=== PATIENT | female | born 1985 | race Caucasian/White ===

== ENCOUNTER 2020-03-23 06:00 | Inpatient (IN) | payer OTHER ==
[2020-03-23 07:14] VITALS: BMI 25.3
[2020-03-23] MEDS ORDERED: OXYTOCIN 20 UNITS in 0.9% NS 20 UNIT/1,000 ML INFUS.BAG IV ONE (08:01)
[2020-03-23] MEDS ORDERED: CITRIC ACID/SODIUM CITRATE 30 ML UNIT-DOSE CUP PO ONE (08:09)
[2020-03-23] MEDS ORDERED: ELECTROLYTE-148 SOLN 500 ML IV ONE (08:09)
--- NOTE | 2020-03-23 08:13 | HP ---
Past Medical History - Admission Chief Complaint: breech, iugr for c s History Source: Patient Limitations to Obtaining History: No Limitations - Past Medical History DIVE MASTER: No: Alzheimer's, CVA, Dementia, Migraine, Multiple Sclerosis, Peripheral Neuropathy, Parkinson's, Seizure, Syncope, TIA, Vertigo, Other Cardiovascular: No: AFIB, Aneurysm, Aortic Insufficiency, Aortic Stenosis, CAD, CHF, Deep Vein Thrombosis, HTN, Hyperlipdemia, MD, Mitral Insufficiency, Mitral Stenosis, Murmur, Pulmonary Hypertension, Other Pulmonary: No: Asthma, Bronchitis, Cancer, COPD, O2 Dependent, Pneumonia, Previously Intubated, Pulmonary Embolus, Pulmonary Fibrosis, Sleep Apnea, Other Gastrointestinal: No: Ascites, Cancer, Constipation, Crohn's Disease, Diverticulitis, Diverticulosis, Esophageal Varices, Gastritis, GERD, GI Bleed, Hemorrhoids, Hiatal Hernia, Inflamatory Bowel Disease, Irritable Bowel Disease, Pancreatitis, Peptic Ulcer Disease, Ulcerative Colitis, Other Hepatobiliary: No: Cirrhosis, Cholelithiasis, Cholecystitis, Choledocholithiasis, Hepatitis A, Hepatitis B, Hepatitis C, Other Renal/: No: Renal Failure, Renal Inusuff, BPH, Cancer, Hematuria, Hemodialysis, Neurogenic Bladder, Renal Calculi, UTI, Other Reproductive: No: Ectopic , Endometriosis, Fibroids, PID, Polycystic Ovary Syndrome, Postmenopausal, Other ...: 1 ...Para: 0 ...Term: 0 ...: 0 ...Spon : 0 ...Induced : 0 ...Living Children: 0 ...Multiple Gestation: 0 ...LMP: 07/03/19 ... Weeks Gestation by Dates: 38.4 ...EDC by Dates: 04/03/20 Heme/Onc: No: Anemia, B12 Deficiency, Bleeding Disorder, Cancer, Current Chemotherapy, Current Radiation Therapy, Hemochromatosis, Hypercoaguable State, Myeloproliferative Synd, Sickle Cell Disease, Sickle Cell Trait, Thrombocytopen ia, Other Infectious Disease: No: AIDS, C-Diff, Herpes Zoster, HIV, MRSA, STD's, Tuberculosis, VREF, Other Psych: No: Addictions, Anxiety, Bipolar, Depression, Panic, Psychosis, Schizophrenia, Other Musculoskeletal: No: Bursitis, Chronic low back pain, Hemiparesis, Hemiplegia, Osteoarthritis, Paraplegia, Other Rheumatology: No: Fibromyalgia, Gout, Lupus, Rheumatoid Arthritis, Sarcoidosis, Vasculitis, Other ENT: No: Allergic Rhinitis, Sinusitis, Other Endocrine: No: Tony's Disease, Briana's Disease, Diabetes Insipidus, Diabetes Mellitus, Hyperparathyroidism, Hyperthyroidism, Hypothyroidism, Osteopenia, SIADH, Other Dermatology: No: Basal Cell, Cellulitis, Eczema, Melanoma, Psoriasis, Squamous Cell, Other - Past Surgical History Past Surgical History: No: None, AAA Repair, AICD, Amputation, Appendectomy, Arthrosocopy, AV Fistula/Graft, Bariatric Surgery, Breast Biopsy, Bypass, CABG, Carotid Endarterectomy, Cataract Removal, Cholecystectomy, Colectomy, Colonoscopy, Colostomy, Craniotomy, , Cystectomy, Hernia Repair, Hysterectomy, Ileal Conduit, Ileosotomy, Joint Replacement, Kidney Transplant, Laminectomy, Liver Transplant, Mastectomy, Nephrectomy, Oopherectomy, Orchiectomy, Permanent Pacemaker, Prostatectomy, Splenectomy, Stent, Thoracotomy, TURP, Tonsillectomy, Tubal Ligation, Upper Endoscopy, Valve Replacement, Vasectomy, Vein Stripping/Ligation Hx Myomectomy: No Hx Transabdominal Cerclage: No - Advance Directives Advance Directives: Yes: Living Will - Smoking History Smoking history: Never smoked Have you smoked in the past 12 months: No - Alcohol/Substance Use Hx Alcohol Use: No History of Substance Use: reports: None - Social History Usual Living Arrangement: Yes: With Significant Other Do you think of yourself as: Straight/Heterosexual ADL: Independent History of Recent Travel: No Home Medications - Allergies Allergies/Adverse Reactions: Allergies Allergy/AdvReac Type Severity Reaction Status Date / Time No Known Allergies Allergy Verified 03/23/20 06:33 - Home Medications Home Medications: Ambulatory Orders Caplet 03/23/20 Family Medical History Family History: Denies Review of Systems - Review of Systems Constitutional: reports: No Symptoms Eyes: reports: No Symptoms HENT: reports: No Symptoms Neck: reports: No Symptoms Cardiovascular: reports: No Symptoms Respiratory: reports: No Symptoms Gastrointestinal: reports: No Symptoms Genitourinary: reports: No Symptoms Breasts: reports: No Symptoms Reported Musculoskeletal: reports: No Symptoms Integumentary: reports: No Symptoms Neurological: reports: No Symptoms Endocrine: reports: No Symptoms Hematology/Lymphatic: reports: No Symptoms Psychiatric: reports: No Symptoms Physical Exam - Maternity Vital Signs: Vital Signs Temperature 98.1 F 03/23/20 06:36 Pulse Rate 105 H 03/23/20 06:36 Respiratory Rate 18 03/23/20 06:36 Blood Pressure 135/79 03/23/20 06:36 O2 Sat by Pulse Oximetry (%) Constitutional: Yes: Well Nourished, No Distress, Calm Eyes: Yes: WNL, Conjunctiva Clear, EOM Intact HENT: Yes: WNL, Atraumatic, Normocephalic Neck: Yes: WNL, Supple, Trachea Midline Cardiovascular: Yes: WNL, Regular Rate and Rhythm Lungs: Clear to auscultation Breast(s): Yes: WNL - Abdominal Exam/OB Number of Fetuses: Single Presentation: Breech Contractions: Yes Regularity: Irregular Intensity: Unaware Monitor Mode: External Heart Rate (range): 150 Heart Rate Location: [facility] Category: I Accelerations: Uniform Decelerations: None - Vaginal Exam/OB Vaginal Bleeding: No Speculum Exam: No Amniotic Membrane Status: Intact Presentation: Gage Breech Station: -2 - Physical Exam Musculoskeletal: Yes: WNL Extremities: Yes: WNL Edema: Yes Integumentary: Yes: WNL Deep Tendon Reflex Grade: Normal +2 ...Motor Strength: WNL Psychiatric: Yes: WNL, Alert, Oriented Hemorrhage Risk Assessment - Risk Factors Medium Risk Factors: Yes: None High Risk Factors: Yes: None Risk Score: 1 Risk Level: Medium Risk Assessment/Plan for c s
[2020-03-23] MEDS ORDERED: ELECTROLYTE-148 SOLN 1,000 ML IV SCH (08:15)
[2020-03-23] MEDS ORDERED: morphine SULFATE/PF 0.5 MG/ML (2cc Syringe - QUVA) ONE (08:21)
[2020-03-23] MEDS ORDERED: ceFAZolin SODIUM 1 GM VIAL ONE (08:27)
[2020-03-23] MEDS ORDERED: OXYTOCIN 10 UNITS/ML VIAL ONE (09:11)
[2020-03-23] MEDS ORDERED: METHYLERGONOVINE MALEATE 0.2 MG/1 ML AMP IM PRN (09:36)
[2020-03-23] MEDS ORDERED: SENNOSIDES/DOCUSATE COMBO (SENNA PLUS) TABLET (UD) PO PRN (09:36)
[2020-03-23] MEDS ORDERED: oxyCODONE HCL 5 MG TABLET PO PRN ×2 (09:36)
[2020-03-23] MEDS ORDERED: IBUPROFEN 800 MG/8 ML IJ IVPB PRN (09:36)
--- NOTE | 2020-03-23 09:41 | OP ---
Operative Note - Note: Operative Date: 03/23/20 Pre-Operative Diagnosis: breech, iugr, Operation: primary lt c s Findings: jozef breech, iugr 9% Post-Operative Diagnosis: Same as Pre-op Surgeon: Erwin Tate Oracle Technical Architect: Cortes Ballesteros Anesthesiologist/RFID SYSTEMS ARCHITECT: Sudeep Gonzalez Anesthesia: Spinal Estimated Blood Loss (mls): 200 (no complications ) Operative Report Dictated: Yes
[2020-03-23] MEDS ORDERED: OXYTOCIN 20 UNITS in 0.9% NS 20 UNIT/1,000 ML INFUS.BAG IV SCH (09:45)
[2020-03-23] MEDS ORDERED: IBUPROFEN 800 MG/8 ML IJ IVPB ONE (09:46)
[2020-03-23] MEDS: PRENATAL VITAMINS W/ FOLIC ACID TABLET (FP) PO SCH (10:15)
[2020-03-23] MEDS: ACETAMINOPHEN 325 MG TABLET (FP) PO PRN ×2 (16:48→21:34)
[2020-03-23] MEDS: SIMETHICONE 80 MG TAB.CHEW (FP) PO PRN (16:48)
[2020-03-23] MEDS: IBUPROFEN 600 MG TABLET (FP) PO PRN ×2 (18:14→21:35)
[2020-03-24] MEDS: SIMETHICONE 80 MG TAB.CHEW (FP) PO PRN ×4 (05:23→22:58)
[2020-03-24] MEDS: IBUPROFEN 600 MG TABLET (FP) PO PRN ×4 (05:23→22:57)
[2020-03-24] MEDS: ACETAMINOPHEN 325 MG TABLET (FP) PO PRN ×4 (05:24→22:58)
[2020-03-24 08:21] LABS: BASO % 0.2 % (0-2.0); HEMATOCRIT 28.7 % (32.4-45.2); LYMPH % 11.9 % (8-40); MCH 33.6 pg (25.7-33.7); MCHC 34.9 g/dl (32.0-36.0); MEAN CELL VOLUME 96.3 fl (80-96); MEAN PLT VOLUME 10.5 fl (7.5-11.1); NEUT % 80.9 % (42.8-82.8); PLATELET COUNT 143 K/MM3 (134-434); RBC 2.98 M/mm3 (3.60-5.2); RDW 12.7 % (11.6-15.6); WHITE BLOOD COUNT 10.1 K/mm3 (4.0-10.0)
[2020-03-24] MEDS ORDERED: BISACODYL 10 MG SUPP.RECT RC PRN (09:36)
--- NOTE | 2020-03-24 10:08 | PN ---
Post Progress Note Post Day: 1 Type of Delivery: Primary C/S Vital Signs: Vital Signs Temperature 97.9 F 03/24/20 06:00 Pulse Rate 67 03/24/20 06:00 Respiratory Rate 20 03/24/20 06:00 Blood Pressure 95/54 L 03/24/20 06:00 O2 Sat by Pulse Oximetry (%) 100 03/23/20 10:15 Breast Exam: Yes: Soft Uterus: Yes: Fundus Firm, Fundus below umbilicus Incision: Yes: Dressing dry and intact, Sutures intact Abdomen/GI: Yes: Abdomen soft, Passing flatus, Tolerating PO Lochia: Yes: Serosa Lochia, amount: Small Extremities: Yes: Calves non-tender Activity: Ambulating (dc pt home possible tomorrow or sunday , doing well ) - Labs Labs: CBC WBC 10.1 K/mm3 (4.0-10.0) H 03/24/20 07:38 RBC 2.98 M/mm3 (3.60-5.2) L 03/24/20 07:38 Hgb 10.0 GM/dL (10.7-15.3) L 03/24/20 07:38 Hct 28.7 % (32.4-45.2) L D 03/24/20 07:38 MCV 96.3 fl (80-96) H 03/24/20 07:38 MCH 33.6 pg (25.7-33.7) 03/24/20 07:38 MCHC 34.9 g/dl (32.0-36.0) 03/24/20 07:38 RDW 12.7 % (11.6-15.6) 03/24/20 07:38 Plt Count 143 K/MM3 (134-434) D 03/24/20 07:38 MPV 10.5 fl (7.5-11.1) 03/24/20 07:38 Absolute Neuts (auto) 8.2 K/mm3 (1.5-8.0) H 03/24/20 07:38 Neutrophils % 80.9 % (42.8-82.8) 03/24/20 07:38 Lymphocytes % 11.9 % (8-40) D 03/24/20 07:38 Monocytes % 6.0 % (3.8-10.2) 03/24/20 07:38 Eosinophils % 1.0 % (0-4.5) 03/24/20 07:38 Basophils % 0.2 % (0-2.0) 03/24/20 07:38 Nucleated RBC % 0 % (0-0) 03/24/20 07:38
--- NOTE | 2020-03-24 10:11 | DS ---
Physical Exam-REIMBURSEMENT ANALYST Vital Signs: Vital Signs Temperature 97.9 F 03/24/20 06:00 Pulse Rate 67 03/24/20 06:00 Respiratory Rate 20 03/24/20 06:00 Blood Pressure 95/54 L 03/24/20 06:00 O2 Sat by Pulse Oximetry (%) 100 03/23/20 10:15 Constitutional: Yes: Well Nourished, No Distress, Calm Eyes: Yes: WNL, Conjunctiva Clear, EOM Intact HENT: Yes: WNL, Atraumatic, Normocephalic Neck: Yes: WNL, Supple, Trachea Midline Cardiovascular: Yes: WNL, Regular Rate and Rhythm Respiratory: Yes: WNL, Regular, CTA Bilaterally Gastrointestinal: Yes: WNL, Normal Bowel Sounds, Soft ...Rectal Exam: Yes: WNL Renal/: Yes: WNL Pelvis: Yes: WNL External Genitalia: Yes: Normal Internal Exam Deferred: Yes Vaginal Exam: Yes: Normal Cervix: Yes: Normal Uterus: Yes: Normal Adnexa: Normal: Bilateral ....Post : Yes: Uterus firm, Uterus non-tender Breast(s): Yes: WNL Musculoskeletal: Yes: WNL Extremities: Yes: WNL Edema: Yes Integumentary: Yes: WNL Wound/Incision: Yes: Clean/Dry, Well Approximated Neurological: Yes: WNL, Alert, Oriented ...Motor Strength: WNL Psychiatric: Yes: WNL, Alert, Oriented Labs: CBC, BMP 03/24/20 07:38 Delivery - Delivery Section: Primary Type of Anesthesia: Spinal EBL (cc): 300 Delivery, Single - Stages of Labor Date of Delivery: 03/23/20 Time of Delivery: 08:42 Time Placenta Delivered: 08:43 Placenta: Yes: Spontaneous - Condition of Infant Content Management Specialist/Veneer Jointer Helper Present: Yes Name: Keyana Kaplan Infant Gender: Female Weight: 2.92 kg Total Hours ROM (Hrs/Mins): 1 min - 1 Minute Total Score: 9 5 Minutes Total Score: 9 - Feeding Plan Initial Plan: Exclusive throughout hospitalization Discharge Summary Problems reviewed: Yes Reason For Visit: SCHEDULED Procedures: Principal: primary lt c s Other Procedures: none Condition: Good - Instructions Diet, Activity, Other Instructions: Physical activity Resume your normal everyday activity as tolerated no heavy lifting or exercise until seen by your surgeon. You may walk unlimited frank of and climb stairs. You may resume driving the car when you feel safe and comfortable behind the wheel. No sexual activity as instructed. Wound care If you have a bandage, leave it on, and keep dry for 48-72 hours. After that time discard the outer bandage. If they are tapes on the skin under the out of bandage leave them in place. They will peel off in the next 7 to 10 days. Do Not Peel them off. You may shower the day after surgery. If there are tapes present on the skin, you may shower over them. Diet There are no dietary restrictions. Eat healthy, high-fiber foods. Drink 6 to 8 glasses of liquid each day. This will assist in keeping your bowels are regular. Pain management You may take Tylenol or acetaminophen or Ibuprofen (for example, Motrin, Advil etc.) from my pain prescription medication is ordered should be taken as prescribed for moderate to severe pain. Call MD for any of the following: call dr kirby for 2 weeks appointment Severe pain not relieved by medication Fever of 101 or higher Excessive bleeding or drainage on dressing Inability to urinate Referrals: Jorge Conteh [Primary Care Provider] - Disposition: HOME - Home Medications Comprehensive Discharge Medication List: Ambulatory Orders Caplet 03/23/20 Prescription Drug Monitoring Program (I-STOP) results: I-STOP reviewed and no issues identified
[2020-03-24] MEDS: PRENATAL VITAMINS W/ FOLIC ACID TABLET (FP) PO SCH (10:14)
--- NOTE | 2020-03-24 12:33 | PN ---
Progress Note (short form) - Note Progress Note: Post op day#1.S/P C Section under Spinal anesthesia with Duramorph une ventful.Patient stable and c/o little pain for which she is on medication.No any anesthesia related problem.Patient Dc from the anesthesia care.
--- NOTE | 2020-03-24 15:56 | OP ---
DATE OF OPERATION: 03/23/2020 PREOPERATIVE DIAGNOSIS: Breech presentation, intrauterine growth restriction at 9th percentile. POSTOPERATIVE DIAGNOSIS: Jozef breech presentation. PROCEDURE: Primary low transverse section. SURGEON: Ant Morrsi MD WIPING RAG WASHER: EMRE Kaur ANESTHESIA: Spinal. ANESTHESIOLOGIST: Ray Gonzalez MD INDICATION: This is a 34-year-old female patient 38 weeks , IUGR 9th percentile in breech presentation for more than 6 weeks. This is an IVF baby and patient also has oligohydramnios. All the risks and benefits and alternatives explained to the patient and patient is taken to OR for primary low transverse section as above indication. PROCEDURE: So, patient was taken to the OR, placed on the operating table in the supine position after spinal anesthesia was obtained. The patient's abdomen and pelvis were prepped and draped in the usual sterile manner. Pfannenstiel incision was made. Incision was made through skin, subcutaneous tissue until the fascia was nicked in the midline. The fascia was extended bilaterally. Intraperitoneal cavity was entered. No bladder flap was created. Low transverse segment was entered. Baby delivered from jozef breech presentation. Baby was handed over to ct tech after umbilical cord doubly clamped and cut. Placenta was removed. Uterus then closed in single layer, first layer interlocking Vicryl sutures. Good hemostasis. Both gutters cleaned. Both ovaries, fallopian tubes, uterus were within normal limits. Tolerated procedure well. Draining clear urine. Blood loss about 200 mL. Patient's peritoneum was closed. Fascia was closed. Skin was closed. Transferred to recovery room in stable condition. ANT MORRIS MD [id number]
[2020-03-25] MEDS: ACETAMINOPHEN 325 MG TABLET (FP) PO PRN ×3 (07:42→18:22)
[2020-03-25] MEDS: IBUPROFEN 600 MG TABLET (FP) PO PRN ×3 (07:42→18:19)
[2020-03-25] MEDS: SIMETHICONE 80 MG TAB.CHEW (FP) PO PRN ×2 (07:43→13:08)
[2020-03-25] MEDS: PRENATAL VITAMINS W/ FOLIC ACID TABLET (FP) PO SCH (09:50)
--- NOTE | 2020-03-25 19:51 | PN ---
Post Progress Note Post Day: 2 Type of Delivery: Primary C/S Vital Signs: Vital Signs Temperature 98.6 F 03/25/20 10:00 Pulse Rate 72 03/25/20 10:00 Respiratory Rate 20 03/25/20 10:00 Blood Pressure 100/67 03/25/20 10:00 O2 Sat by Pulse Oximetry (%) 96 03/24/20 21:00 Uterus: Yes: Fundus Firm, Fundus below umbilicus Incision: Yes: Dressing dry and intact, Sutures intact Abdomen/GI: Yes: Abdomen soft, Passing flatus, Tolerating PO Lochia: Yes: Serosa Lochia, amount: Small Extremities: Yes: Calves non-tender Perineum: Yes: Intact Activity: Ambulating - Labs Labs: CBC WBC 10.1 K/mm3 (4.0-10.0) H 03/24/20 07:38 RBC 2.98 M/mm3 (3.60-5.2) L 03/24/20 07:38 Hgb 10.0 GM/dL (10.7-15.3) L 03/24/20 07:38 Hct 28.7 % (32.4-45.2) L D 03/24/20 07:38 MCV 96.3 fl (80-96) H 03/24/20 07:38 MCH 33.6 pg (25.7-33.7) 03/24/20 07:38 MCHC 34.9 g/dl (32.0-36.0) 03/24/20 07:38 RDW 12.7 % (11.6-15.6) 03/24/20 07:38 Plt Count 143 K/MM3 (134-434) D 03/24/20 07:38 MPV 10.5 fl (7.5-11.1) 03/24/20 07:38 Absolute Neuts (auto) 8.2 K/mm3 (1.5-8.0) H 03/24/20 07:38 Neutrophils % 80.9 % (42.8-82.8) 03/24/20 07:38 Lymphocytes % 11.9 % (8-40) D 03/24/20 07:38 Monocytes % 6.0 % (3.8-10.2) 03/24/20 07:38 Eosinophils % 1.0 % (0-4.5) 03/24/20 07:38 Basophils % 0.2 % (0-2.0) 03/24/20 07:38 Nucleated RBC % 0 % (0-0) 03/24/20 07:38
[2020-03-26] MEDS: SIMETHICONE 80 MG TAB.CHEW (FP) PO PRN ×2 (00:29→09:57)
[2020-03-26] MEDS: IBUPROFEN 600 MG TABLET (FP) PO PRN ×3 (00:29→14:49)
[2020-03-26] MEDS: ACETAMINOPHEN 325 MG TABLET (FP) PO PRN ×3 (00:30→14:49)
[2020-03-26] MEDS: PRENATAL VITAMINS W/ FOLIC ACID TABLET (FP) PO SCH (09:48)
[2020-03-26 14:23] VITALS: BP 119/75; PULSE 73; TEMP 98.2
--- NOTE | 2020-03-26 16:06 | PATH ---
Surgical Pathology Report Patient Name: ANITRA ODEN Med. Rec. #: [id number] /Age/Gender: 1985 (Age: 34) / F Account: [id number] Location: [facility] OBS/PHYSICIAN GENERAL PRACTICE Taken: 03/23/2020 Received: 03/23/2020 Reported: 03/26/2020 Physicians: Erwin Tate MD Specimen(s) Received PLACENTA Clinical History , 38.3 weeks gestation, IUGR breech presentation Final Diagnosis PLACENTA, SECTION: 397 G THIRD TRIMESTER PLACENTA WITH TRIVASCULAR UMBILICAL CORD AND UNREMARKABLE PLACENTAL MEMBRANES. Electronically Signed Kita Martines M.D. Gross Description The specimen is received fresh labeled placenta and is a 397 gram, 18.5 x 17.5 x 2.2 cm. placenta with attached membranes and umbilical cord. The attached membranes are rojas, translucent with focal opacities and insert marginally. The umbilical cord measures 28 cm. in length and averages 1.2 cm. in diameter. The cord inserts eccentrically, 3 cm. to the nearest margin. No true knots or strictures are identified. Cut surface of the umbilical cord reveals 3 vessels. The surface is garcia-blue with minimal fibrin deposition and appropriate caliber vessels. The maternal surface is red-brown with focal defects. Sectioning reveals red-brown, spongy parenchyma. No lesions are identified. Artist Representative sections are submitted in three cassettes as follows: 1- membrane rolls and umbilical cord; 2-3- full thickness sections of placenta. /03/25/2020 saudi03/25/2020
== END 2020-03-26 15:05 | disposition home or self-care (01) | DRG 540 ==
LOC: JLDR 06:00 → J3W 11:12
PROVIDERS: ADMIT Obstetrics & Gynecology; ATTEND Obstetrics & Gynecology
PROC: 10D00Z1 Extraction of Products of Conception, Low, Open Approach (ICD-10-PCS; principal; 2020-03-23)
DX: O82 Encounter for cesarean delivery without indication (principal); O32.1XX0 Maternal care for breech presentation, not applicable or unspecified; O36.5930 Maternal care for other known or suspected poor fetal growth, third trimester, not applicable or unspecified; Z3A.38 38 weeks gestation of pregnancy; Z37.0 Single live birth
CPT/HCPCS: 36415; 85025; 87389; 88307-TC

== ENCOUNTER 2021-09-28 06:00 | Inpatient (IN) | payer OTHER ==
[2021-09-28] MEDS: ELECTROLYTE-148 SOLN 1,000 ML IV SCH ×2 (06:00→08:10)
[2021-09-28 06:38] VITALS: BMI 26.4
[2021-09-28] MEDS ORDERED: morphine SULFATE/PF 1 MG/2 ML (2cc Syringe - QUVA) EP ONE (07:38)
[2021-09-28] MEDS ORDERED: ONDANSETRON 4 MG/2 ML VIAL IVPUSH PRN (07:38)
[2021-09-28] MEDS ORDERED: SODIUM CHLORIDE 0.9% P/F 10 ML VIAL IJ ONE (07:48)
[2021-09-28] MEDS ORDERED: ceFAZolin SODIUM 1 GM VIAL ONE (07:48)
[2021-09-28] MEDS ORDERED: PHENYLEPHRINE HCL 10 MG/1 ML SINGLE DOSE VIAL ONE (08:23)
[2021-09-28] MEDS ORDERED: OXYTOCIN 10 UNITS/ML VIAL ONE ×2 (08:36→08:45)
[2021-09-28] MEDS ORDERED: ONDANSETRON 4 MG/2 ML VIAL ONE (08:39)
[2021-09-28] MEDS ORDERED: MIDAZOLAM HCL 2 MG/2 ML SINGLE DOSE VIAL ONE (08:41)
[2021-09-28] MEDS ORDERED: METHYLERGONOVINE MALEATE 0.2 MG/1 ML AMP IM PRN (09:26)
[2021-09-28] MEDS ORDERED: SENNOSIDES/DOCUSATE COMBO (SENNA PLUS) TABLET (UD) PO PRN (09:26)
[2021-09-28] MEDS ORDERED: ACETAMINOPHEN 325 MG TABLET (FP) PO PRN (09:26)
[2021-09-28] MEDS ORDERED: IBUPROFEN 800 MG/8 ML IJ IVPB PRN (09:26)
[2021-09-28] MEDS ORDERED: OXYTOCIN 20 UNITS in 0.9% NS 20 UNIT/1,000 ML INFUS.BAG IV SCH (09:30)
[2021-09-28] MEDS: PRENATAL VITAMINS W/ FOLIC ACID TABLET (FP) PO SCH (12:56)
[2021-09-28 18:42] LABS: HIV INTERPRETATION NEGATIVE (NEGATIVE)
[2021-09-28] MEDS ORDERED: oxyCODONE HCL 5 MG TABLET PO PRN ×2 (21:26)
[2021-09-29] MEDS: IBUPROFEN 600 MG TABLET (FP) PO PRN ×3 (03:48→20:14)
[2021-09-29] MEDS: SIMETHICONE 80 MG TAB.CHEW (FP) PO PRN ×2 (03:48→20:14)
[2021-09-29 07:34] LABS: BASO % 0.4 % (0-2.0); EOS % 1.7 % (0-4.5); HEMATOCRIT 31.3 % (32.4-45.2); HEMOGLOBIN 10.8 GM/dL (10.7-15.3); LYMPH % 14.8 % (8-40); MCH 32.9 pg (25.7-33.7); MCHC 34.6 g/dl (32.0-36.0); MEAN CELL VOLUME 95.1 fl (80-96); MONO % 8.6 % (3.8-10.2); NEUT % 74.5 % (42.8-82.8); PLATELET COUNT 161 10^3/uL (134-434); RDW 13.4 % (11.6-15.6); WHITE BLOOD COUNT 10.6 K/mm3 (4.0-10.0)
[2021-09-29] MEDS ORDERED: BISACODYL 10 MG SUPP.RECT RC PRN (09:26)
[2021-09-29] MEDS: PRENATAL VITAMINS W/ FOLIC ACID TABLET (FP) PO SCH (10:13)
[2021-09-30] MEDS: IBUPROFEN 600 MG TABLET (FP) PO PRN ×2 (07:34→19:18)
[2021-09-30] MEDS: SIMETHICONE 80 MG TAB.CHEW (FP) PO PRN ×2 (07:35→19:18)
[2021-09-30] MEDS: PRENATAL VITAMINS W/ FOLIC ACID TABLET (FP) PO SCH (10:40)
[2021-10-01] MEDS: IBUPROFEN 600 MG TABLET (FP) PO PRN (06:33)
[2021-10-01] MEDS: SIMETHICONE 80 MG TAB.CHEW (FP) PO PRN (06:33)
[2021-10-01 07:30] VITALS: BP 125/66; PULSE 60; TEMP 98.1
[2021-10-01] MEDS: PRENATAL VITAMINS W/ FOLIC ACID TABLET (FP) PO SCH (09:33)
[2021-10-01] MEDS: ELECTROLYTE-148 SOLN 1,000 ML IV SCH (13:09)
== END 2021-10-01 13:25 | disposition home or self-care (01) | DRG 540 ==
LOC: JLDR 06:00 → J3W 10:20
PROVIDERS: ADMIT Obstetrics & Gynecology; ATTEND Obstetrics & Gynecology
PROC: 10D00Z1 Extraction of Products of Conception, Low, Open Approach (ICD-10-PCS; principal; 2021-09-28)
DX: O34.211 Maternal care for low transverse scar from previous cesarean delivery (principal); O36.5930 Maternal care for other known or suspected poor fetal growth, third trimester, not applicable or unspecified; Z3A.39 39 weeks gestation of pregnancy; Z37.0 Single live birth
CPT/HCPCS: 36415; 85025; 87389; 88307-TC

== ENCOUNTER 2022-12-08 08:00 | Inpatient (IN) | payer OTHER ==
[2022-12-08] MEDS ORDERED: CITRIC ACID/SODIUM CITRATE 30 ML UNIT-DOSE CUP PO ONE (12:00)
[2022-12-08] MEDS ORDERED: ELECTROLYTE-148 SOLN 500 ML IV ONE (12:00)
[2022-12-08] MEDS ORDERED: ELECTROLYTE-148 SOLN 500 ML IV SCH (12:45)
[2022-12-08 13:23] VITALS: BMI 26.8
[2022-12-08] MEDS ORDERED: morphine SULFATE/PF 1 MG/2 ML (2cc Syringe - QUVA) ONE (14:45)
[2022-12-08] MEDS ORDERED: ELECTROLYTE-148 SOLN 1,000 ML IV SCH (15:15)
[2022-12-08] MEDS ORDERED: IBUPROFEN 800 MG/8 ML IJ IVPB PRN (16:57)
[2022-12-08] MEDS ORDERED: METHYLERGONOVINE MALEATE 0.2 MG/1 ML AMP IM PRN (16:57)
[2022-12-08] MEDS ORDERED: ACETAMINOPHEN 325 MG TABLET (FP) PO PRN (16:57)
[2022-12-08] MEDS ORDERED: SENNOSIDES/DOCUSATE COMBO (SENNA PLUS) TABLET (UD) PO PRN (16:57)
[2022-12-08] MEDS ORDERED: OXYTOCIN 20 UNITS in 0.9% NS 20 UNIT/1,000 ML INFUS.BAG IV SCH (17:00)
[2022-12-08] MEDS ORDERED: ACETAMINOPHEN 1000 MG/100 ML BAG IVPB PRN (17:00)
[2022-12-08] MEDS ORDERED: ONDANSETRON 4 MG/2 ML VIAL IVPUSH PRN (17:13)
[2022-12-08] MEDS ORDERED: morphine SULFATE/PF 1 MG/2 ML (2cc Syringe - QUVA) EP ONE (17:13)
[2022-12-08] MEDS ORDERED: OXYTOCIN 20 UNITS in 0.9% NS 20 UNIT/1,000 ML INFUS.BAG IV ONE (17:54)
[2022-12-09] MEDS ORDERED: oxyCODONE HCL 5 MG TABLET PO PRN ×2 (04:57)
[2022-12-09 08:37] LABS: BASO % 0.2 % (0-2.0); HEMATOCRIT 31.7 % (32.4-45.2); HEMOGLOBIN 10.7 GM/dL (10.7-15.3); LYMPH % 10.9 % (8-40); MCH 31.1 pg (25.7-33.7); MCHC 33.8 g/dl (32.0-36.0); MEAN CELL VOLUME 92.2 fl (80-96); MEAN PLT VOLUME 9.9 fl (7.5-11.1); MONO % 7.5 % (3.8-10.2); NEUT % 80.4 % (42.8-82.8); PLATELET COUNT 220 10^3/uL (134-434); RBC 3.44 M/mm3 (3.60-5.2); RDW 12.9 % (11.6-15.6)
[2022-12-09] MEDS: IBUPROFEN 600 MG TABLET (FP) PO PRN ×2 (09:22→20:08)
[2022-12-09] MEDS: FERROUS SO4 325 MG TABLET (FP) PO SCH (09:23)
[2022-12-09] MEDS: PRENATAL VITAMINS W/ FOLIC ACID TABLET (FP) PO SCH (09:23)
[2022-12-09] MEDS ORDERED: BISACODYL 10 MG SUPP.RECT RC PRN (16:57)
[2022-12-09] MEDS: SIMETHICONE 80 MG TAB.CHEW (FP) PO PRN (20:08)
[2022-12-10 08:11] VITALS: RESP 16
[2022-12-10] MEDS: FERROUS SO4 325 MG TABLET (FP) PO SCH (09:02)
[2022-12-10] MEDS: PRENATAL VITAMINS W/ FOLIC ACID TABLET (FP) PO SCH (09:02)
[2022-12-10] MEDS: SIMETHICONE 80 MG TAB.CHEW (FP) PO PRN (09:21)
[2022-12-10] MEDS: IBUPROFEN 600 MG TABLET (FP) PO PRN ×2 (12:39→20:57)
[2022-12-11] MEDS: IBUPROFEN 600 MG TABLET (FP) PO PRN (05:59)
[2022-12-11 07:38] VITALS: BP 109/74; PULSE 75; TEMP 98.1
[2022-12-11] MEDS: FERROUS SO4 325 MG TABLET (FP) PO SCH (09:19)
[2022-12-11] MEDS: SIMETHICONE 80 MG TAB.CHEW (FP) PO PRN (09:19)
[2022-12-11] MEDS: PRENATAL VITAMINS W/ FOLIC ACID TABLET (FP) PO SCH (09:19)
== END 2022-12-11 12:23 | disposition home or self-care (01) | DRG 540 ==
LOC: JLDR 11:45 → J3W 18:00
PROVIDERS: ADMIT Obstetrics & Gynecology; ATTEND Obstetrics & Gynecology
PROC: 10D00Z1 Extraction of Products of Conception, Low, Open Approach (ICD-10-PCS; principal; 2022-12-08)
DX: O34.211 Maternal care for low transverse scar from previous cesarean delivery (principal); N85.8 Other specified noninflammatory disorders of uterus; Z3A.39 39 weeks gestation of pregnancy; Z37.0 Single live birth
CPT/HCPCS: 36415; 85025; 88307-TC; 94010